=== PATIENT | male | born 1990 | race Caucasian/White ===

== ENCOUNTER 2024-07-09 18:31 | Emergency (ER) | payer BC, SELFPAY ==
[2024-07-09 18:37] VITALS: BP 188/105
--- NOTE | 2024-07-09 18:52 | ED.GENMED ---
History of Present Illness
General
Chief Complaint: Skin Problem
Source: patient
Exam Limitations: none
Time Seen by Provider: 07/09/24 18:40
Nursing documentation reviewed up to this point in time: agreed with
History of Present Illness
History of Present Illness:
Patient presents to ED secondary to 2-day history of lower abdominal wall redness/tenderness. Today, patient states that an area opened up and some pus came out, with improvement in symptoms. Patient has had history of staph infection, treated
successfully with antibiotics. Denies fever or chills. Denies nausea or vomiting. Denies trauma. Denies recent illness.
Past History
Past History
ED Past Medical History: None
ED Past Surgical History: None
Social History
Tobacco: Non-smoker
Alcohol: None
Drug: None
Personal:
Living: with roommate
Review of Systems
Review of Systems
Allergies reviewed?: Yes
All Other Systems: ROS reviewed and negative except as documented in HPI and ROS
Constitutional: Reports no symptoms; Denies fever
ABD/GI: Reports no symptoms
Musculoskeletal: Reports no symptoms
Skin: Reports other (Abdominal wall redness with pain)
Phy Exam
Physical Exam
Physical Exam:
Physical Exam
General: no apparent distress, not acutely ill. afebrile
Head: nc/at. eomi
Neck: supple. normal range of motion.
Abdomen: normal bowel sounds. not tender.
Neuro: alert and oriented x 3. no focal neurological deficits
Skin: an approx 2cm x 3cm area of erythema w minimal induration, with opened surface approx 1cm without active drainage.
Psychiatric: well kept. interactive and cooperative
Extremities: no edema. no calf tenderness.
Course
Orders/Labs/Results
Orders:
Orders
07/09/24 18:57
Doxycycline [Vibramycin] 100 mg PO NOW STA
Vital Signs
Initial and Last Documented VS:
Initial Vital Signs
Temp Pulse Resp BP Pulse Ox
98.8 F 93 17 188/105 99
07/09/24 18:37 07/09/24 18:37 07/09/24 18:37 07/09/24 18:37 07/09/24 18:37
Last Documented Vital Signs
Temp Pulse Resp BP Pulse Ox
98.8 F 93 17 188/105 99
07/09/24 18:37 07/09/24 18:37 07/09/24 18:37 07/09/24 18:37 07/09/24 18:37
MDM/Problems Addressed
MDM/Problems Addressed:
History and exam consistent with likely recurrent skin infection. No indication for I&D at this time, as there has been spontaneous opening of the wound with drainage. Patient will be started on doxycycline, which he has taken successfully in the
past, with recommendation to follow-up with PCP for reevaluation in 2 to 3 days. Advised return to ED with worsening symptoms.
*Critical Care Note
Total Time (30-74mins, 75-104mins- exclusive of procedures): Not Applicable
ED Attending Note
-
Portions of this chart may have been created with voice recognition software.� Occasional wrong word or��sound alike� substitutions may have occurred due to the inherent limitations of voice recognition software.
Discharge Plan
Departure
Patient Disposition: Home (Routine Discharge)
Date of Disposition: 07/09/24
Time of Disposition: 18:57
Patient with high blood pressure during this ER visit?: Yes
Condition: Good
Discharge Problem:
Cellulitis
Instructions: Cellulitis (Skin Infection), Adult (DC)
Prescriptions:
New
doxycycline monohydrate 100 mg capsule
100 mg PO BID Qty: 13 0RF
No Action
cephalexin 500 MG capsule
500 mg PO Q6 Qty: 40 0RF
doxycycline hyclate 100 mg capsule
100 mg PO BID Qty: 20 0RF
ibuprofen 800 mg tablet
800 mg PO Q8H PRN (Reason: Pain) Qty: 20 0RF
Activity Restrictions/Additional Instructions:
As discussed, please follow-up with your primary care physician for reevaluation in 2 to 3 days. Please consider return to ED with worsening symptoms. Your prescription has been sent electronically to [facility] pharmacy in [place].
Interventions
Interventions:
*Risk Screen - Suicide Last Done: 07/09/24 18:38
*General Assessment Last Done: 07/09/24 18:38
*Neglect/Abuse Screening Last Done: 07/09/24 18:38
*ED COVID-19 Vaccine History Last Done: 07/09/24 18:38
*Nursing Disposition Last Done: 07/09/24 19:04
ED-Skin Assessment Last Done: 07/09/24 18:58
Discharge Date and Time
Discharge Date/Time: 07/09/24 19:11
Print Language: [place]
[2024-07-09] MEDS: VIBRAMYCIN 100 MG PO (19:10)
== END 2024-07-09 19:11 | disposition home or self-care (01) ==
LOC: EMR 18:31
PROVIDERS: EMERGENCY PHYSICIAN Emergency Medicine; FAMILY PHYSICIAN Family Medicine
DX: L03.311 Cellulitis of abdominal wall (principal); Z86.19 Personal history of other infectious and parasitic diseases
CPT/HCPCS: 99283